=== PATIENT | male | born 1955 | race Caucasian/White ===

== ENCOUNTER 2017-12-23 08:53 | Emergency (ER) | payer OTHER, MEDICAID, SELFPAY ==
[2017-12-23 09:00] VITALS: BP 159/89; PULSE 97; RESP 18; TEMP 37.1; O2SAT 98
--- NOTE | 2017-12-23 09:05 | ED.AMS ---
HPI - Altered Mental Status General Chief Complaint: Toxicology Problem Stated Complaint: ETOH Time Seen by Provider: 12/23/17 09:03 Source: EMS Mode of arrival: EMS Limitations: other (Intoxicated) History of Present Illness HPI narrative: Patient is a 62-year-old male presents with alcohol intoxication. Bili is 0 he was in the ED the end of October for alcohol intoxication. He then got sober for about all days. He has now been drunk again for a week or more. His is tired of dealing with him. She called EMS. There is no trauma he has no complaints. Slightly slurred speech. Admits that he drank whiskey prior to arrival. MD complaint: intoxication Related Data Previous Rx's Medication Instructions Recorded fluticasone 1 spray INTRANASAL BID #16 gm 05/17/17 buspirone 15 mg PO BID #60 tab 09/04/17 chlorthalidone 25 mg PO QDAY #30 tab 09/06/17 pramipexole [Mirapex] 1 mg PO BID #60 tab 09/06/17 atorvastatin [Lipitor] 20 mg PO HS #30 tab 10/05/17 furosemide 20 mg PO QDAY #30 tab 10/05/17 lisinopril 40 mg PO QDAY #60 tab 10/05/17 metoprolol tartrate 50 mg PO BID #60 tab 10/05/17 hydroxyzine HCl 0 mg PO Q4HP PRN #120 tab 10/23/17 gabapentin [Neurontin] 600 mg PO TID #90 tab 11/06/17 bupropion HCl SR 150 mg tablet,12 150 mg PO BID #60 tab 12/05/17 hr sustained-release hydrocodone 5 mg-acetaminophen 325 1 tab PO Q6H #120 tab 12/05/17 mg tablet Allergies Allergy/AdvReac Type Severity Reaction Status Date / Time pain contract Allergy Unknown Uncoded 12/05/17 16:00 Review of Systems Review of Systems All systems reviewed & are unremarkable except as noted in HPI and below Constitutional Denies chills, Denies fever(s), Denies lethargy and Denies weakness Cardiovascular Denies dyspnea and Denies dyspnea on exertion Respiratory Denies cough, Denies dyspnea, Denies dyspnea on exertion and Denies wheezing Neurologic Reports system reviewed and no additional complaints, except as docu and Denies weakness Psychiatric Reports system reviewed and no additional complaints, except as docu Comments: Alcoholic Allergic/Immunologic Denies wheezing Exam Initial Vital Signs Initial Vital Signs: Vital Signs Temperature 98.7 F 12/23/17 09:00 Pulse Rate 97 H 12/23/17 09:00 Respiratory Rate 18 12/23/17 09:00 Blood Pressure 159/89 H 12/23/17 09:00 Pulse Oximetry 98 12/23/17 09:00 HENMT Head: normal to inspection and normocephalic Resp Effort & Inspection: normal respiratory effort and able to speak in complete sentences Auscultation: clear to auscultation bilaterally Cardio Rate: regular rate Rhythm: regular rhythm Heart Sounds: S1 normal and S2 normal GI Inspection: normal to inspection Auscultation: normal bowel sounds Neuro General: alert, awake and CN's II-XI intact bilaterally Motor: muscle tone normal throughout and No asterixis Sensory Exam: no sensory deficits noted Extrem General: normal to inspection Psych Appearance: grossly normal Speech and Movement: speech not clear (Slightly slurred) Attitude: cooperative and not belligerent Course Hospital Course: Patient wanted some Ativan just to help calm down but he really does not show any sign of withdrawal Orders Ordered: Discontinued Medications Lorazepam (Ativan) 1 mg PO NOW ONE Stop: 12/23/17 11:25 Last Admin: 12/23/17 11:39 Dose: 1 mg Vital Signs - 8 hr 12/23/17 09:00 12/23/17 12:26 Temperature 98.7 F Pulse Rate 97 H 113 H Respiratory Rate 18 18 Blood Pressure 159/89 H Blood Pressure [Right Arm] 138/107 H Pulse Oximetry 98 96 MDM - Altered Mental Status MDM Narrative Medical decision making narrative: Patient has no sign of withdrawal he drank whiskey before he got here. His seems to see tired of his alcoholism. She is recommended Al-Anon. Patient cannot give a clear answer about whether he wants to be sober or not. They are given resources for [facility]. Patient is clinically sober and has a ride home. Discharge Plan Departure Patient Disposition: Home, Self-Care Clinical Impression: Alcohol intoxication Discharge Date/Time: 12/23/17 12:28 Interventions: ED Discharge Assessment Last Done: 12/23/17 12:27 Instructions: DI for Delirium Tremens, DI for Alcohol Abuse Activity Restrictions/Additional Instructions: *You have been diagnosed with alcohol intoxication *What to do: Recommend getting sober under supervision *Take medications as directed *Follow up with your primary care provider in 2-3 days *Return to ER if you should have any new, worsening or concerning symptoms Prescriptions: No Action fluticasone 16 GM spray,suspension 1 spray Intranasal BID Qty: 16 RF: 0 buspirone 15 MG tablet 15 mg PO BID Qty: 60 RF: 1 pramipexole [Mirapex] 1 MG tablet 1 mg PO BID Qty: 60 RF: 0 chlorthalidone 25 MG tablet 25 mg PO QDAY Qty: 30 RF: 11 lisinopril 20 MG tablet 40 mg PO QDAY Qty: 60 RF: 5 metoprolol tartrate 50 MG tablet 50 mg PO BID Qty: 60 RF: 5 furosemide 20 MG tablet 20 mg PO QDAY Qty: 30 RF: 5 atorvastatin [Lipitor] 20 MG tablet 20 mg PO HS Qty: 30 RF: 5 hydroxyzine HCl 25 MG tablet PO Q4HP PRNQty: 120 RF: 0 gabapentin [Neurontin] 600 MG tablet 600 mg PO TID Qty: 90 RF: 5 bupropion HCl [Wellbutrin SR] 150 mg tablet extended release 12 hr 150 mg PO BID Qty: 60 RF: 0 hydrocodone-acetaminophen 5-325 mg tablet 1 tab PO Q6H Qty: 120 RF: 0 Referrals: Luba Crawley DO [Primary Care Provider] -
[2017-12-23] MEDS: LORazepam 1 MG TABLET PO (11:39)
[2017-12-23 12:26] VITALS: BP 138/107; PULSE 113; RESP 18; O2SAT 96
== END 2017-12-23 12:28 | disposition home or self-care (01) ==
PROVIDERS: Emergency Provider Emergency Medicine; Family Provider Family Medicine; PCP Family Medicine
DX: F10.929 Alcohol use, unspecified with intoxication, unspecified (principal)
CPT/HCPCS: 99283

== ENCOUNTER 2017-12-25 10:02 | Emergency (ER) | payer OTHER, MEDICAID, SELFPAY ==
[2017-12-25 10:00] VITALS: BP 133/97; PULSE 78; RESP 18; TEMP 36.4; O2SAT 96
--- NOTE | 2017-12-25 10:12 | ED_ITS ---
HPI - Alcohol General Chief Complaint: Toxicology Problem Stated Complaint: Intoxication Time Seen by Provider: 12/25/17 10:03 Source: patient Mode of arrival: EMS History of Present Illness HPI narrative: Patient is a 62-year-old male who presents with alcohol intoxication. He is a known alcoholic who was seen here 2 days ago for the same. He has been drinking quite heavily since then. This is a not want to go to treatment. Unclear why he is here now. No sign of trauma. MD complaint: alcohol intoxication Related Data Home Medications Medication Instructions Recorded Confirmed hydroxyzine HCl 0 mg PO Q4HP PRN 12/25/17 12/25/17 lisinopril 40 mg PO DAILY 12/25/17 12/25/17 Previous Rx's Medication Instructions Recorded fluticasone 1 spray INTRANASAL BID #16 gm 05/17/17 buspirone 15 mg PO BID #60 tab 09/04/17 chlorthalidone 25 mg PO QDAY #30 tab 09/06/17 pramipexole [Mirapex] 1 mg PO BID #60 tab 09/06/17 atorvastatin [Lipitor] 20 mg PO HS #30 tab 10/05/17 furosemide 20 mg PO QDAY #30 tab 10/05/17 metoprolol tartrate 50 mg PO BID #60 tab 10/05/17 gabapentin [Neurontin] 600 mg PO TID #90 tab 11/06/17 bupropion HCl SR 150 mg tablet,12 150 mg PO BID #60 tab 12/05/17 hr sustained-release hydrocodone 5 mg-acetaminophen 325 1 tab PO Q6H #120 tab 12/05/17 mg tablet lorazepam [Ativan] 1 mg PO Q8H #12 tab 12/25/17 Allergies Allergy/AdvReac Type Severity Reaction Status Date / Time pain contract Allergy Unknown Uncoded 12/05/17 16:00 Review of Systems Review of Systems unobtainable due to mental status (Intoxication) PFSH Social History Smoking Status: Current every day smoker alcohol intake: current Exam Initial Vital Signs Initial Vital Signs: Vital Signs Temperature 97.6 F 12/25/17 10:00 Pulse Rate 78 12/25/17 10:00 Respiratory Rate 18 12/25/17 10:00 Blood Pressure 133/97 H 12/25/17 10:00 Pulse Oximetry 96 12/25/17 10:00 Const General: intoxicated appearing and other (tearfull) [facility] Head: normal to inspection and normocephalic Chest Chest: normal inspection of the chest Resp Effort & Inspection: normal respiratory effort and able to speak in complete sentences Cardio Rate: regular rate Rhythm: regular rhythm Heart Sounds: no click, no gallops, no murmurs and no rubs Pulses: normal peripheral pulses GI Inspection: non-distended Palpation: soft, no hepatosplenomegaly, No guarding, No pulsatile mass and No tender Auscultation: normal bowel sounds Skin General: no rashes or lesions noted, No jaundice and No petechiae Course Hospital Course: Social Work in ED to evaluate patient. No beds at rehab. She has set up for [facility] next day evaluation. Patient has agreed and does not want to drink anymore. His alcohol level has been decreasing he has a steady gait and is clinically sober. I have agreed to give him 1 prescription of Ativan. He understands that he will unlikely be getting another 1 from the emergency department for withdrawal like symptoms. His says that she will be responsible for the medication and giving it to him Orders Ordered: ED Orders 12/25/17 10:08 Rapid Drug Screen, Urine Stat 12/25/17 10:20 Acetaminophen Stat Comprehensive Metabolic Panel Stat Ethanol (ETOH) Stat Lipase Stat Magnesium Stat Salicylate Stat 12/25/17 10:28 Consult to Senior Pensions Administrator Stat 12/25/17 10:32 Consult to Senior Pensions Administrator Stat Discontinued Medications Multivitamins (Tab-A-Rosales) 1 tab PO NOW ONE Stop: 12/25/17 10:04 Last Admin: 12/25/17 10:54 Dose: 1 tab Vital Signs - 8 hr 12/25/17 10:00 12/25/17 11:11 12/25/17 14:39 Temperature 97.6 F Pulse Rate 78 80 93 H Respiratory Rate 18 16 16 Blood Pressure 133/97 H Blood Pressure [Left Arm] 137/92 H 113/81 H Pulse Oximetry 96 100 99 12/25/17 14:56 Temperature Pulse Rate 97 H Respiratory Rate 20 Blood Pressure 113/81 H Blood Pressure [Left Arm] Pulse Oximetry 97 MDM - Alcohol Lab Data Attestation: I reviewed the patient's lab results. Result diagrams: 12/25/17 Unknown 12/25/17 10:20 Labs: Lab Results 05/30/18 05/30/18 Range/Units 10:20 Unknown WBC 4.0 L (4.5-11.0) X10^3/uL RBC 4.95 (4.5-5.9) X10^6/uL Hgb 15.3 (13.5-17.5) g/dL Hct 44.2 (41-53) % MCV 89.3 (80-100) fL MCH 30.8 (26-34) PG MCHC 34.5 (30-36) % RDW 13.4 (11.6-14.8) % Plt Count 116 L (150-400) X10^3/uL Neut % (Auto) 63.5 (50-75) % Lymph % (Auto) 29.8 (25-40) % [place] % (Auto) 6.2 (3-14) % Eos % (Auto) 0.3 L (2-4) % Baso % (Auto) 0.2 (0-2) % Neut # (Auto) 2500 L (3335-9904) /uL Sodium 140 (137-145) mmol/L Potassium 3.8 (3.4-5.1) mmol/L Chloride 93 L (98-107) mmol/L Carbon Dioxide 32 (22-32) mmol/L BUN 11 (9-20) mg/dL Creatinine 0.80 (0.66-1.25) mg/dL Estimated GFR > 60.0 (>60) mL/min BUN/Creatinine Ratio 13.8 (6-22) Glucose 105 (80-110) mg/dL Calcium 8.1 L (8.4-10.2) mg/dL Magnesium 2.4 H (1.6-2.3) mg/dL Total Bilirubin 0.9 (0.2-1.3) mg/dL AST 478 H (17-59) IU/L ALT 346 H (21-72) IU/L Alkaline Phosphatase 81 (38-126) U/L Total Protein 7.4 (6.3-8.2) g/dL Albumin 4.5 (3.5-5.0) g/dL Globulin 2.9 (1.7-4.1) g/dL Albumin/Globulin Ratio 1.6 (1.0-2.8) Lipase 305 H (23-300) U/L Salicylates < 1.0 (<20) mg/dL Acetaminophen < 10 L (10-30) ug/dL Ethyl Alcohol 483 H* mg/dL MDM Narrative Medical decision making narrative: Patient is clinically sober with steady gait at discharge. All is driving him. Discharge Plan Departure Patient Disposition: Home, Self-Care Clinical Impression: Alcohol intoxication Discharge Date/Time: 12/25/17 14:59 Interventions: ED Discharge Assessment Last Done: 12/25/17 14:56 Instructions: DI for Alcohol Abuse Activity Restrictions/Additional Instructions: *You have been diagnosed with alcohol intoxication *What to do: Appointment has been made for you with [facility] tomorrow *Continue to take medications as directed -Ativan taper take as directed *Follow up with your primary care provider in 2-3 days *Return to ER if you should have hallucinations, shaking, or any new, worsening or concerning symptoms Prescriptions: New lorazepam [Ativan] 1 mg tablet 1 mg PO Q8H Qty: 12 RF: 0 No Action fluticasone 16 GM spray,suspension 1 spray Intranasal BID Qty: 16 RF: 0 buspirone 15 MG tablet 15 mg PO BID Qty: 60 RF: 1 pramipexole [Mirapex] 1 MG tablet 1 mg PO BID Qty: 60 RF: 0 chlorthalidone 25 MG tablet 25 mg PO QDAY Qty: 30 RF: 11 metoprolol tartrate 50 MG tablet 50 mg PO BID Qty: 60 RF: 5 furosemide 20 MG tablet 20 mg PO QDAY Qty: 30 RF: 5 atorvastatin [Lipitor] 20 MG tablet 20 mg PO HS Qty: 30 RF: 5 gabapentin [Neurontin] 600 MG tablet 600 mg PO TID Qty: 90 RF: 5 bupropion HCl [Wellbutrin SR] 150 mg tablet extended release 12 hr 150 mg PO BID Qty: 60 RF: 0 hydrocodone-acetaminophen 5-325 mg tablet 1 tab PO Q6H Qty: 120 RF: 0 lisinopril 40 mg tablet 40 mg PO DAILY RF: 0 hydroxyzine HCl 25 MG tablet PO Q4HP PRN (Reason: Anxiety) RF: 0 Referrals: Luba Crawley DO [Primary Care Provider] -
--- NOTE | 2017-12-25 10:26 | PC.NURSE ---
Matthew at bedside.
[2017-12-25 10:30] LABS: Add Manual Diff / Slide Review NO; Basophils Percent Auto 0.2 % (0-2); Eosinophils Percent Auto 0.3 % (2-4); Hematocrit 44.2 % (41-53); Hemoglobin 15.3 g/dL (13.5-17.5); Lymphocytes Percent Auto 29.8 % (25-40); Mean Corpuscular HGB Conc 34.5 % (30-36); Mean Corpuscular Hemoglobin 30.8 PG (26-34); Mean Corpuscular Volume 89.3 fL (80-100); Monocytes Percent Auto 6.2 % (3-14); Neutrophils Absolute Auto 2500 /uL (3000-5900); Neutrophils Percent Auto 63.5 % (50-75); Platelet Count 116 X10^3/uL (150-400); Red Blood Cell Count 4.95 X10^6/uL (4.5-5.9); Red Cell Distribution Width 13.4 % (11.6-14.8)
[2017-12-25 10:43] LABS: Acetaminophen < 10 ug/dL (10-30); Alanine Aminotransferase 346 IU/L (21-72); Albumin 4.5 g/dL (3.5-5.0); Albumin Globulin Ratio 1.6 (1.0-2.8); Alkaline Phosphatase 81 U/L (38-126); Aspartate Aminotransferase 478 IU/L (17-59); BUN Creatinine Ratio 13.8 (6-22); Bilirubin Total 0.9 mg/dL (0.2-1.3); Blood Urea Nitrogen 11 mg/dL (9-20); Calcium 8.1 mg/dL (8.4-10.2); Carbon Dioxide 32 mmol/L (22-32); Chloride 93 mmol/L (98-107); Estimated Glomerular Filt Rate > 60.0 mL/min (>60); Globulin 2.9 g/dL (1.7-4.1); Glucose 105 mg/dL (80-110); HEMOLYSIS < 15 (0-50); Lipase 305 U/L (23-300); Magnesium 2.4 mg/dL (1.6-2.3); Potassium 3.8 mmol/L (3.4-5.1); Sodium 140 mmol/L (137-145); Total Protein 7.4 g/dL (6.3-8.2)
[2017-12-25 10:45] LABS: Salicylate < 1.0 mg/dL (<20)
[2017-12-25] MEDS: MULTIVITAMIN 1 TABLET 1 TAB PO (10:54)
[2017-12-25 11:07] LABS: Ethanol (ETOH) 483 mg/dL
--- NOTE | 2017-12-25 11:08 | PC.NURSE ---
lab called with critical alcohol level 483, dr medeiros and Susy HARMON notified.
[2017-12-25 11:11] VITALS: BP 137/92; PULSE 80; RESP 16; O2SAT 100
--- NOTE | 2017-12-25 12:31 | PC.NURSE ---
PT with yelling out in room. is called per his request. PT wants staff to sit with him until she arrives. IT is explained that he is visualized by staff for safety and he needs to stop yelling and rest until arrives
[2017-12-25 14:39] VITALS: BP 113/81; PULSE 93; RESP 16; O2SAT 99
--- NOTE | 2017-12-25 14:48 | PC.NURSE ---
Amb to dang steady. Will dc home with meds for detox. states she will monitor meds and keep calling for detox bed
[2017-12-25 14:56] VITALS: BP 113/81; PULSE 97; RESP 20; O2SAT 97
== END 2017-12-25 14:59 | disposition home or self-care (01) ==
PROVIDERS: Emergency Provider Emergency Medicine; Family Provider Family Medicine; PCP Family Medicine
DX: F10.929 Alcohol use, unspecified with intoxication, unspecified (principal)
CPT/HCPCS: 36415; 80053; 80320; 80329; 82075; 83690; 83735; 85025; 99283; G0480

== ENCOUNTER 2018-04-10 19:39 | Emergency (ER) | payer OTHER, MEDICAID, SELFPAY ==
[2018-04-10 19:49] VITALS: BP 155/93; PULSE 96; RESP 19; TEMP 36.7; O2SAT 100; BMI 40.0
[2018-04-10 20:34] LABS: Add Manual Diff / Slide Review NO; Basophils Percent Auto 0.8 % (0-2); Eosinophils Percent Auto 2.7 % (2-4); Hematocrit 44.7 % (41-53); Hemoglobin 15.1 g/dL (13.5-17.5); Lymphocytes Percent Auto 34.1 % (25-40); Mean Corpuscular HGB Conc 33.8 % (30-36); Mean Corpuscular Hemoglobin 31.1 PG (26-34); Neutrophils Absolute Auto 2700 /uL (3000-5900); Neutrophils Percent Auto 52.4 % (50-75); Platelet Count 311 X10^3/uL (150-400); Red Blood Cell Count 4.86 X10^6/uL (4.5-5.9); Red Cell Distribution Width 13.6 % (11.6-14.8); White Blood Cell Count 5.2 X10^3/uL (4.5-11.0)
[2018-04-10] MEDS: LORazepam 0.5 MG TABLET 2 MG PO (20:42)
[2018-04-10 20:43] LABS: Urine Amphetamines Negative (Negative); Urine Barbiturates Negative (Negative); Urine Benzodiazepines Negative (Negative); Urine Cocaine Negative (Negative); Urine MDMA Negative (Negative); Urine Methadone Negative (Negative); Urine Methamphetamines Negative (Negative); Urine Morphine/Opi cutoff 2000 Positive (Negative); Urine Oxycodone Negative (Negative); Urine Phencyclidine Negative (Negative); Urine Tetrahydrocannabinol Positive (Negative); Urine Tricyclic Antidepressant Negative (Negative)
[2018-04-10 20:50] LABS: Alanine Aminotransferase 60 IU/L (21-72); Albumin 4.2 g/dL (3.5-5.0); Albumin Globulin Ratio 1.5 (1.0-2.8); Alkaline Phosphatase 52 U/L (38-126); Aspartate Aminotransferase 67 IU/L (17-59); BUN Creatinine Ratio 18.8 (6-22); Bilirubin Total 0.5 mg/dL (0.2-1.3); Blood Urea Nitrogen 15 mg/dL (9-20); Calcium 8.6 mg/dL (8.4-10.2); Carbon Dioxide 31 mmol/L (22-32); Chloride 106 mmol/L (98-107); Estimated Glomerular Filt Rate > 60.0 mL/min (>60); Ethanol (ETOH) 207 mg/dL; Globulin 2.8 g/dL (1.7-4.1); Glucose 102 mg/dL (80-110); HEMOLYSIS < 15 (0-50); Potassium 3.8 mmol/L (3.4-5.1); Sodium 147 mmol/L (137-145)
[2018-04-10] MEDS: OLANZapine ODT 10 MG TAB 20 MG PO (21:41)
[2018-04-10 21:44] LABS: Thyroid Stimulating Hormone 2.71 uIU/mL (0.47-4.68)
--- NOTE | 2018-04-10 21:49 | PC.NURSE ---
Pt starting to increase in agitation, stating I just want to get home to my . He started walking out of the room and started getting agitated when he was told he needed to stay for the time being while results of tests were finishing. Provider aware of increased agitation. Provider able to talk pt back into room and was able to convince patient to take dose of zyprexa. Pt asking for dip. Pt agreed for nicotine patch at this time.
[2018-04-10] MEDS: NICOTINE 21 MG PATCH TOP (23:34)
--- NOTE | 2018-04-11 00:09 | PC.NURSE ---
Pt tried to leave, walked out of room, police were dispatched. Pt was redirected to room by RN's, pt left room again and police arrived, assisted with redirecting pt to ambulate to room. Pt updated by dr aldana and resting on stretcher.
[2018-04-11 02:20] LABS: Ethanol (ETOH) 93 mg/dL
--- NOTE | 2018-04-11 04:00 | PC.NURSE ---
Request for DCR pt eval dispatched at 0340, DCR Payam Lynn called at 0400 to report the DCR on next shift will be dispatched to eval pt.
--- NOTE | 2018-04-11 06:30 | PC.NURSE ---
DCR arrived speaking with Dr. Malone updated on DCR arrival and breakfast tray ordered for pt.
--- NOTE | 2018-04-11 06:56 | ED_ITS ---
HPI - Psych General Chief Complaint: Psychiatric Symptoms Stated Complaint: Behaviorial Time Seen by Provider: 04/10/18 19:50 Source: patient and police Mode of arrival: ambulatory History of Present Illness HPI Narrative: 62-year-old male with history of alcohol and smoking as well as untreated psychiatric illness presents with a police escort after he became drunk and disorderly and was holding a fire arm stating he would do anything to protect his . He has become quite frustrated in his inability to help his whom is chronically ill. He drank a significant amount of alcohol and in an effort to proved to his he could help her and protect her he carried a gun through the house. This was witnessed by a neighbor whom notified police. On arrival police found him caring the gun and he told them he had no desire to hurt herself or others that he was just holding the gun and an effort to present a masculine image to his in an effort to impress her. He had been sober for 18 years until he moved here 2-3 years ago and started drinking on occasion again but yesterday was a significant change in his normal consumption. MD complaint: feels depressed Onset (ago): hour(s) Duration: constant Relieving factors: none Exacerbating factors: none Context: recent alcohol abuse Associated psychiatric symptoms: depression Associated symptoms: denies other symptoms Treatments prior to arrival: placed on mental health hold Related Data Home Medications Medication Instructions Recorded Confirmed lisinopril 40 mg PO DAILY 12/25/17 04/04/18 Previous Rx's Medication Instructions Recorded fluticasone 1 spray INTRANASAL BID #16 gm 05/17/17 chlorthalidone 25 mg PO QDAY #30 tab 09/06/17 atorvastatin [Lipitor] 20 mg PO HS #30 tab 10/05/17 furosemide 20 mg PO QDAY #30 tab 10/05/17 metoprolol tartrate 50 mg PO BID #60 tab 10/05/17 gabapentin [Neurontin] 600 mg PO TID #90 tab 11/06/17 hydroxyzine HCl 25 mg tablet 25 mg PO Q4HP PRN #120 tab 01/01/18 pramipexole 1 mg tablet 1 mg PO BID #60 tab 01/07/18 buspirone 15 mg PO BID #60 tab 01/30/18 bupropion HCl SR 150 mg tablet,12 150 mg PO BID #60 tab 02/07/18 hr sustained-release hydrocodone 5 mg-acetaminophen 325 1 tab PO Q6H PRN #120 tab 03/21/18 mg tablet Allergies Allergy/AdvReac Type Severity Reaction Status Date / Time pain contract Allergy Unknown Uncoded 02/21/18 15:13 Review of Systems Review of Systems All systems reviewed & are unremarkable except as noted in HPI and below Constitutional Denies chills, Denies fever(s), Denies lethargy and Denies weakness Eyes Denies change in vision, Denies eye discharge, Denies irritation and Denies loss of vision ENT Ears, Nose, Mouth, and Throat: Denies change in voice, Denies neck pain and Denies sore throat Cardiovascular Denies chest pain, Denies irregular heart rhythm, Denies lightheadedness, Denies palpitations, Denies dyspnea, Denies dyspnea on exertion and Denies orthopnea Respiratory Denies cough, Denies dyspnea, Denies dyspnea on exertion and Denies wheezing Gastrointestinal Gastrointestinal: Denies abdominal pain, Denies change in bowel habits, Denies diarrhea, Denies nausea and Denies vomiting Genitourinary Denies hematuria, Denies flank pain, Denies urinary incontinence and Denies urinary urgency Musculoskeletal Denies neck pain Integumentary/Breasts Denies pruritus, Denies erythema, Denies rash and Denies wounds Neurologic Denies confusion, Denies loss of vision and Denies weakness Psychiatric Reports anxiety, Denies confusion, Denies depression, Denies homicidal ideation and Denies suicidal ideation Endocrine Denies palpitations Hematologic/Lymphatic Denies easy bruising Allergic/Immunologic Denies wheezing FOR[facility]LY [facility], [facility] Medical History Alcoholism (Chronic) Ankle pain (Chronic 2017) Anxiety (Chronic 2005) Chronic back pain (Chronic 1999) Cluster headaches (Chronic) Foot pain (Chronic 2016) Hypertension (Chronic 1999) Shoulder pain (Chronic 2006) Sleep apnea (Chronic 2009) Vertigo (Chronic 2009) Surgical History Anesthesia (Resolved) Status post rotator cuff repair (Resolved 2006) Social History marital status: Smoking Status: Former smoker alcohol intake: current Exam Narrative Exam Narrative: GENERAL: Slightly discharge of old 62-year-old male slurring his words a bit, obviously intoxicated HEAD: Atraumatic. Normocephalic. No temporal or scalp tenderness. EYES: Pupils equal round and reactive. Extraocular motions intact. No scleral icterus. No injection or drainage. ENT: Nose without bleeding, purulent drainage or septal hematoma. Throat without erythema, tonsillar hypertrophy or exudate. Uvula midline. Airway patent. NECK: Trachea midline. No JVD or lymphadenopathy. Supple, nontender, no meningeal signs. CARDIOVASCULAR: Regular rate and rhythm without murmurs, gallops, or rubs. RESPIRATORY: Clear to auscultation. Breath sounds equal bilaterally. No wheezes , rales, or rhonchi. GASTROINTESTINAL: Abdomen soft, non-tender, nondistended. No hepato-splenomegaly , or palpable masses. No guarding. EXTREMITIES: No clubbing, cyanosis, or edema. No joint tenderness, effusion, or edema noted. BACK: Nontender without deformity or crepitance. No flank tenderness. NEURO: AOx3. SKIN: No rash or erythema. Initial Vital Signs Initial Vital Signs: Vital Signs Temperature 98.1 F 04/10/18 19:49 Pulse Rate 96 H 04/10/18 19:49 Respiratory Rate 19 04/10/18 19:49 Blood Pressure 155/93 H 04/10/18 19:49 Pulse Oximetry 100 04/10/18 19:49 Course Orders Ordered: ED Orders 04/11/18 01:58 Ethanol (ETOH) Stat Discontinued Medications Lorazepam (Ativan) 2 mg PO NOW ONE Stop: 04/10/18 20:14 Last Admin: 04/10/18 20:42 Dose: 2 mg Nicotine (Nicoderm) 21 mg TOP NOW ONE Stop: 04/10/18 21:50 Last Admin: 04/10/18 23:34 Dose: 21 mg Olanzapine (Zyprexa Zydis) 20 mg PO NOW ONE Stop: 04/10/18 21:40 Last Admin: 04/10/18 21:41 Dose: 20 mg Consultations Consultation #1: Patient has a lengthy after deviated written by police, please consult for the specifics but generally it states that the is scared of the patient and he was acting erratically with a gotten she feared for her safety. Consultation #2: Given access to and handling of firearms [facility] designated mental health provider is consulted upon medical clearance the patient and brought alcohol below 80 Vital Signs - 8 hr 04/10/18 19:49 Temperature 98.1 F Pulse Rate 96 H Respiratory Rate 19 Blood Pressure 155/93 H Pulse Oximetry 100 [facility] - Psych Lab Data Result diagrams: 04/10/18 20:26 04/10/18 20:26 Lab Results 04/10/18 04/10/18 04/10/18 Range/Units 20:20 20:26 20:26 WBC 5.2 (4.5-11.0) X10^3/uL RBC 4.86 (4.5-5.9) X10^6/uL Hgb 15.1 (13.5-17.5) g/dL Hct 44.7 (41-53) % MCV 92.0 (80-100) fL MCH 31.1 (26-34) PG MCHC 33.8 (30-36) % RDW 13.6 (11.6-14.8) % Plt Count 311 (150-400) X10^3/uL Neut % (Auto) 52.4 (50-75) % Lymph % (Auto) 34.1 (25-40) % Smyth % (Auto) 10.0 (3-14) % Eos % (Auto) 2.7 (2-4) % Baso % (Auto) 0.8 (0-2) % Neut # (Auto) 2700 L (2867-7047) /uL Sodium 147 H (137-145) mmol/L Potassium 3.8 (3.4-5.1) mmol/L Chloride 106 (98-107) mmol/L Carbon Dioxide 31 (22-32) mmol/L BUN 15 (9-20) mg/dL Creatinine 0.80 (0.66-1.25) mg/dL Estimated GFR > 60.0 (>60) mL/min BUN/Creatinine Ratio 18.8 (6-22) Glucose 102 (80-110) mg/dL Calcium 8.6 (8.4-10.2) mg/dL Total Bilirubin 0.5 (0.2-1.3) mg/dL AST 67 H (17-59) IU/L ALT 60 (21-72) IU/L Alkaline Phosphatase 52 (38-126) U/L Total Protein 7.0 (6.3-8.2) g/dL Albumin 4.2 (3.5-5.0) g/dL Globulin 2.8 (1.7-4.1) g/dL Albumin/Globulin Ratio 1.5 (1.0-2.8) TSH (0.47-4.68) uIU/mL Urine Opiates Screen Positive H (Negative) Ur Oxycodone Screen Negative (Negative) Urine Methadone Screen Negative (Negative) Ur Barbiturates Screen Negative (Negative) U Tricyclic Antidepress Negative (Negative) Ur Phencyclidine Scrn Negative (Negative) Ur Amphetamines Screen Negative (Negative) U Methamphetamines Scrn Negative (Negative) Ur MDMA Scrn (Ecstasy) Negative (Negative) U Benzodiazepines Scrn Negative (Negative) Urine Cocaine Screen Negative (Negative) U Marijuana (THC) Screen Positive H (Negative) Ethyl Alcohol 207 mg/dL 04/10/18 04/11/18 Range/Units 20:26 01:58 WBC (4.5-11.0) X10^3/uL RBC (4.5-5.9) X10^6/uL Hgb (13.5-17.5) g/dL Hct (41-53) % MCV (80-100) fL MCH (26-34) PG MCHC (30-36) % RDW (11.6-14.8) % Plt Count (150-400) X10^3/uL Neut % (Auto) (50-75) % Lymph % (Auto) (25-40) % Smyth % (Auto) (3-14) % Eos % (Auto) (2-4) % Baso % (Auto) (0-2) % Neut # (Auto) (6192-8436) /uL Sodium (137-145) mmol/L Potassium (3.4-5.1) mmol/L Chloride (98-107) mmol/L Carbon Dioxide (22-32) mmol/L BUN (9-20) mg/dL Creatinine (0.66-1.25) mg/dL Estimated GFR (>60) mL/min BUN/Creatinine Ratio (6-22) Glucose (80-110) mg/dL Calcium (8.4-10.2) mg/dL Total Bilirubin (0.2-1.3) mg/dL AST (17-59) IU/L ALT (21-72) IU/L Alkaline Phosphatase (38-126) U/L Total Protein (6.3-8.2) g/dL Albumin (3.5-5.0) g/dL Globulin (1.7-4.1) g/dL Albumin/Globulin Ratio (1.0-2.8) TSH 2.71 (0.47-4.68) uIU/mL Urine Opiates Screen (Negative) Ur Oxycodone Screen (Negative) Urine Methadone Screen (Negative) Ur Barbiturates Screen (Negative) U Tricyclic Antidepress (Negative) Ur Phencyclidine Scrn (Negative) Ur Amphetamines Screen (Negative) U Methamphetamines Scrn (Negative) Ur MDMA Scrn (Ecstasy) (Negative) U Benzodiazepines Scrn (Negative) Urine Cocaine Screen (Negative) U Marijuana (THC) Screen (Negative) Ethyl Alcohol 93 mg/dL Point of Care Testing Glucose POC 82 Urine Dip Bedside Urine Glucose Negative Bedside Urine Bilirubin - Negative Bedside Urine Ketone - Negative Urine Specific [place] 1.015 Bedside Urine Occult Blood - Negative Bedside Urine pH 6.5 Bedside Urine Protein - Negative Bedside Urine Urobilinogen - Negative Bedside Urine Nitrite - Negative Bedside Urine Leukocytes - Negative Esterase Discharge Plan Departure Patient Disposition: Home Clinical Impression: Alcohol abuse, Depression Instructions: Depression Activity Restrictions/Additional Instructions: *You have been diagnosed with [ depression ] *What to do: *continue to take medications as directed *Follow up with your primary care provider in 2-3 days, call for an appointment. Let them know you were seen in the Emergency Department and that we ask that you be seen in follow up *Return to ER if you should have any new, worsening or concerning symptoms Prescriptions: No Action fluticasone 16 GM spray,suspension 1 spray Intranasal BID Qty: 16 RF: 0 chlorthalidone 25 MG tablet 25 mg PO QDAY Qty: 30 RF: 11 metoprolol tartrate 50 MG tablet 50 mg PO BID Qty: 60 RF: 5 furosemide 20 MG tablet 20 mg PO QDAY Qty: 30 RF: 5 atorvastatin [Lipitor] 20 MG tablet 20 mg PO HS Qty: 30 RF: 5 gabapentin [Neurontin] 600 MG tablet 600 mg PO TID Qty: 90 RF: 5 pramipexole [Mirapex] 1 mg tablet 1 mg PO BID Qty: 60 RF: 1 buspirone 15 mg tablet 15 mg PO BID Qty: 60 RF: 5 bupropion HCl [Wellbutrin SR] 150 mg tablet extended release 12 hr 150 mg PO BID Qty: 60 RF: 11 hydrocodone-acetaminophen 5-325 mg tablet 1 tab PO Q6H PRN (Reason: pain) Qty: 120 RF: 0 hydroxyzine HCl 25 mg tablet 25 mg PO Q4HP PRN (Reason: Anxiety) Qty: 120 RF: 0 lisinopril 40 mg tablet 40 mg PO DAILY RF: 0 Referrals: Luba Crawley DO [Primary Care Provider] -
[2018-04-11 08:50] VITALS: BP 152/88; PULSE 100; RESP 20; O2SAT 97
--- NOTE | 2018-04-12 10:39 | PC.NURSE ---
I called the patient today 04-12-18 at 10:30 and talked with spouse Kaylee. I let the patient know that her husbands [employer], [place], ID's, glasses, and chewing tobacco have been locked in the safe in the Acute Care floor. She said they will most likely stop by tomorrow, if not they will be back.
== END 2018-04-11 09:00 | disposition home or self-care (01) ==
PROVIDERS: Emergency Provider Emergency Medicine; Family Provider Family Medicine; PCP Family Medicine
DX: F10.10 Alcohol abuse, uncomplicated (principal); F32.9 Major depressive disorder, single episode, unspecified
CPT/HCPCS: 36415; 80053; 80305; 80320; 81003; 82962; 84443; 85025; 99282; 99283

== ENCOUNTER 2018-04-12 17:36 | Emergency (ER) | payer OTHER, MEDICAID, SELFPAY ==
[2018-04-12 17:41] VITALS: BP 149/100; PULSE 107; RESP 16; TEMP 37.1; O2SAT 96
--- NOTE | 2018-04-12 18:17 | ED.ALCOHOL ---
HPI - Alcohol General Chief Complaint: Toxicology Problem Stated Complaint: Alcohol Intoxication / Health Eval Time Seen by Provider: 04/12/18 18:04 Related Data Home Medications Medication Instructions Recorded Confirmed lisinopril 40 mg PO DAILY 12/25/17 04/04/18 Previous Rx's Medication Instructions Recorded fluticasone 1 spray INTRANASAL BID #16 gm 05/17/17 chlorthalidone 25 mg PO QDAY #30 tab 09/06/17 atorvastatin [Lipitor] 20 mg PO HS #30 tab 10/05/17 furosemide 20 mg PO QDAY #30 tab 10/05/17 metoprolol tartrate 50 mg PO BID #60 tab 10/05/17 gabapentin [Neurontin] 600 mg PO TID #90 tab 11/06/17 hydroxyzine HCl 25 mg tablet 25 mg PO Q4HP PRN #120 tab 01/01/18 pramipexole 1 mg tablet 1 mg PO BID #60 tab 01/07/18 buspirone 15 mg PO BID #60 tab 01/30/18 bupropion HCl SR 150 mg tablet,12 150 mg PO BID #60 tab 02/07/18 hr sustained-release hydrocodone 5 mg-acetaminophen 325 1 tab PO Q6H PRN #120 tab 03/21/18 mg tablet Allergies Allergy/AdvReac Type Severity Reaction Status Date / Time No Known Drug Allergies Allergy Verified 04/12/18 17:45 PFSH Surgical History Anesthesia (Resolved) Status post rotator cuff repair (Resolved 2006) Social History marital status: Smoking Status: Former smoker alcohol intake: current Exam Initial Vital Signs Initial Vital Signs: Vital Signs Temperature 98.7 F 04/12/18 17:41 Pulse Rate 107 H 04/12/18 17:41 Respiratory Rate 16 04/12/18 17:41 Blood Pressure 149/100 H 04/12/18 17:41 Pulse Oximetry 96 04/12/18 17:41 Course Vital Signs - 8 hr 04/12/18 17:41 Temperature 98.7 F Pulse Rate 107 H Respiratory Rate 16 Blood Pressure 149/100 H Pulse Oximetry 96 Discharge Plan Departure Prescriptions: No Action fluticasone 16 GM spray,suspension 1 spray Intranasal BID Qty: 16 RF: 0 chlorthalidone 25 MG tablet 25 mg PO QDAY Qty: 30 RF: 11 metoprolol tartrate 50 MG tablet 50 mg PO BID Qty: 60 RF: 5 furosemide 20 MG tablet 20 mg PO QDAY Qty: 30 RF: 5 atorvastatin [Lipitor] 20 MG tablet 20 mg PO HS Qty: 30 RF: 5 gabapentin [Neurontin] 600 MG tablet 600 mg PO TID Qty: 90 RF: 5 pramipexole [Mirapex] 1 mg tablet 1 mg PO BID Qty: 60 RF: 1 buspirone 15 mg tablet 15 mg PO BID Qty: 60 RF: 5 bupropion HCl [Wellbutrin SR] 150 mg tablet extended release 12 hr 150 mg PO BID Qty: 60 RF: 11 hydrocodone-acetaminophen 5-325 mg tablet 1 tab PO Q6H PRN (Reason: pain) Qty: 120 RF: 0 hydroxyzine HCl 25 mg tablet 25 mg PO Q4HP PRN (Reason: Anxiety) Qty: 120 RF: 0 lisinopril 40 mg tablet 40 mg PO DAILY RF: 0
--- NOTE | 2018-04-12 19:28 | PC.NURSE ---
Patient stated to FAUSTINO Torres, can I go? Why am I here? Patient encouraged to wait and speak with
--- NOTE | 2018-04-12 19:29 | PC.NURSE ---
1900: Per Mari Cardona RN, patient was seen walking out of ED with steady gait. Patient is not suicidal, A&Ox3. Dr. Arzate aware.
== END 2018-04-12 19:00 | disposition left against medical advice (07) ==
LOC: ED 19:28
PROVIDERS: Family Provider Family Medicine; PCP Family Medicine
DX: F10.929 Alcohol use, unspecified with intoxication, unspecified (principal)
CPT/HCPCS: 99281; 99283

== ENCOUNTER 2018-04-15 09:42 | Emergency (ER) | payer OTHER, MEDICAID, SELFPAY ==
[2018-04-15 09:45] VITALS: BP 130/80; PULSE 82; RESP 13; TEMP 36.5; O2SAT 96
--- NOTE | 2018-04-15 10:22 | PC.NURSE ---
wt 289 #
--- NOTE | 2018-04-15 10:28 | ED_ITS ---
HPI - Medical Clearance General Chief complaint: Medical Clearance Stated complaint: Fit for [facility] Time Seen by Provider: 04/15/18 10:09 Source: patient Mode of arrival: other (Police) Limitations: no limitations History of Present Illness HPI Narrative: The patient is here with a [employer]. He is cuffed and under arrest for unspecified reasons. He is intoxicated. He has hypertension, and has barely been compliant with medications. He does drink, he chews tobacco. He complains of no recent illness, he denies injuries. He is generally ambulatory without discomfort. He is appropriate and compliant with the evaluation done here in the ER. Home Medications Medication Instructions Recorded Confirmed lisinopril 40 mg PO DAILY 12/25/17 04/04/18 Previous Rx's Medication Instructions Recorded fluticasone 1 spray INTRANASAL BID #16 gm 05/17/17 chlorthalidone 25 mg PO QDAY #30 tab 09/06/17 atorvastatin [Lipitor] 20 mg PO HS #30 tab 10/05/17 furosemide 20 mg PO QDAY #30 tab 10/05/17 metoprolol tartrate 50 mg PO BID #60 tab 10/05/17 gabapentin [Neurontin] 600 mg PO TID #90 tab 11/06/17 hydroxyzine HCl 25 mg tablet 25 mg PO Q4HP PRN #120 tab 01/01/18 pramipexole 1 mg tablet 1 mg PO BID #60 tab 01/07/18 buspirone 15 mg PO BID #60 tab 01/30/18 bupropion HCl SR 150 mg tablet,12 150 mg PO BID #60 tab 02/07/18 hr sustained-release hydrocodone 5 mg-acetaminophen 325 1 tab PO Q6H PRN #120 tab 03/21/18 mg tablet Allergies Allergy/AdvReac Type Severity Reaction Status Date / Time No Known Drug Allergies Allergy Verified 04/12/18 17:45 Review of Systems Review of Systems All systems reviewed & are unremarkable except as noted in HPI and below Constitutional Reports as per HPI, Denies body ache(s), Denies chills, Denies fever(s) and Denies weakness Eyes Denies change in vision ENT Ears, Nose, Mouth, and Throat: Denies dizziness, Denies neck pain, Denies sore throat and Denies throat swelling Cardiovascular Denies chest pain, Denies irregular heart rhythm, Denies lightheadedness, Denies palpitations, Denies dyspnea and Denies dyspnea on exertion Respiratory Denies cough, Denies dyspnea and Denies dyspnea on exertion Gastrointestinal Gastrointestinal: Denies abdominal pain, Denies nausea and Denies vomiting Musculoskeletal Denies back pain and Denies neck pain Integumentary/Breasts Denies rash Neurologic Denies confusion, Denies dizziness and Denies weakness Psychiatric Denies confusion, Denies suicidal ideation and Reports other (Intoxicated) Endocrine Denies palpitations Allergic/Immunologic Denies throat swelling FOR[facility]LY [facility] Medical History Alcoholism (Chronic) Ankle pain (Chronic 2017) Anxiety (Chronic 2005) Chronic back pain (Chronic 1999) Cluster headaches (Chronic) Foot pain (Chronic 2015) Hypertension (Chronic 1999) Shoulder pain (Chronic 2006) Sleep apnea (Chronic 2009) Vertigo (Chronic 2009) Surgical History Anesthesia (Resolved) Status post rotator cuff repair (Resolved 2006) Family History Brother Age: 61 Anxiety Father Hypertension Anxiety Heart failure COPD (chronic obstructive pulmonary disease) Mother Age: 88 High cholesterol Acquired hypothyroidism Social History marital status: Smoking Status: Former smoker Smokeless tobacco user: chewing tobacco alcohol intake: current Exam Initial Vital Signs Initial Vital Signs: Vital Signs Temperature 97.7 F 04/15/18 09:45 Pulse Rate 82 04/15/18 09:45 Respiratory Rate 13 04/15/18 09:45 Blood Pressure 130/80 04/15/18 09:45 Pulse Oximetry 96 04/15/18 09:45 Vital signs are normal, please review nursing notes. Const General: cooperative, healthy appearing and well developed Nutritional Appearance: obese Orientation: alert, awake and oriented x3 Other: He smells of alcohol. HENMT Head: normocephalic and atraumatic Nose: external nose normal Face and sinus: sinuses nontender and face symmetric Mouth: oral mucosae normal and moist mucous membranes Teeth and gingiva: abnormal dentition Throat: posterior oropharynx normal Eyes General: appearance normal, both eyes and all related structures Eyelids: eyelids normal Conjunctivae: conjunctivae normal Sclera: sclerae normal Pupils: PERRL EOM: EOM intact bilaterally Neck Neck: normal visual inspection, trachea midline, No lymphadenopathy, No midline deformity and No JVD Thyroid: thyroid normal Resp Effort & Inspection: normal respiratory effort, able to speak in complete sentences, no respiratory distress and no use of accessory muscles Auscultation: clear to auscultation bilaterally, no rales, no rhonchi and no wheezes Cardio Rate: regular rate Rhythm: regular rhythm Heart Sounds: S1 normal, S2 normal, no click, no gallops, no murmurs and no rubs Pulses: radial pulses present and dorsalis pedis present GI Inspection: non-distended Palpation: soft, no hepatosplenomegaly, No guarding, No pulsatile mass and No tender Auscultation: normal bowel sounds Back/Spine/Pelvis Thoracic/Lumbar Spine: thoracic and lumbar spine normal to inspection Skin General: no rashes or lesions noted Neuro General: alert, oriented x3, gait normal and no focal motor deficits Speech: speech normal Extrem General: normal to inspection, no pedal edema and no calf tenderness MDM - Medical Clearance MDM Narrative Medical decision making narrative: Medical clearance was requested by [employer]. He has no complaints. He is intoxicated. He has history a of hypertension but his blood pressure is stable. He is cleared. Discharge Plan Departure Patient Disposition: Released, Other Clinical Impression: Alcohol intoxication Discharge Date/Time: 04/15/18 10:35 Interventions: ED Discharge Assessment Last Done: 04/15/18 10:34 Instructions: DI for Alcohol Abuse Activity Restrictions/Additional Instructions: Once you are released by the police, I would recommend following up with your physician for routine review of today's events. Return to the ER as needed. Prescriptions: No Action fluticasone 16 GM spray,suspension 1 spray Intranasal BID Qty: 16 RF: 0 chlorthalidone 25 MG tablet 25 mg PO QDAY Qty: 30 RF: 11 metoprolol tartrate 50 MG tablet 50 mg PO BID Qty: 60 RF: 5 furosemide 20 MG tablet 20 mg PO QDAY Qty: 30 RF: 5 atorvastatin [Lipitor] 20 MG tablet 20 mg PO HS Qty: 30 RF: 5 gabapentin [Neurontin] 600 MG tablet 600 mg PO TID Qty: 90 RF: 5 pramipexole [Mirapex] 1 mg tablet 1 mg PO BID Qty: 60 RF: 1 buspirone 15 mg tablet 15 mg PO BID Qty: 60 RF: 5 bupropion HCl [Wellbutrin SR] 150 mg tablet extended release 12 hr 150 mg PO BID Qty: 60 RF: 11 hydrocodone-acetaminophen 5-325 mg tablet 1 tab PO Q6H PRN (Reason: pain) Qty: 120 RF: 0 hydroxyzine HCl 25 mg tablet 25 mg PO Q4HP PRN (Reason: Anxiety) Qty: 120 RF: 0 lisinopril 40 mg tablet 40 mg PO DAILY RF: 0 Stand Alone Forms: Work/School Restrictions
== END 2018-04-15 10:35 | disposition home or self-care (01) ==
LOC: ED 10:31
PROVIDERS: Emergency Provider Emergency Medicine; Family Provider Family Medicine; PCP Family Medicine
DX: F10.929 Alcohol use, unspecified with intoxication, unspecified (principal)
CPT/HCPCS: 99282